=== PATIENT | female | born 1940 | race Caucasian/White ===

== ENCOUNTER 2019-01-16 17:32 | Emergency (ER) | payer MEDICARE, BC ==
[~2019-01-16] VITALS: Ht 170.2 cm; Wt 65.8 kg
[2019-01-16 17:32] VITALS: BP 133/61
[2019-01-16] MEDS ORDERED: CLARITHROMYCIN 500 MG TABLET PO ONE (18:30)
[2019-01-16] MEDS ORDERED: ACETAMINOPHEN 325 MG TABLET PO ONE (18:30)
[2019-01-16] MEDS ORDERED: ACETAMINOPHEN 325 MG TABLET ONE (19:23)
[2019-01-16] MEDS ORDERED: AZITHROMYCIN 250 MG TABLET ONE (19:23)
[2019-01-16] MEDS ORDERED: AZITHROMYCIN 250 MG TABLET PO ONE (19:30)
[2019-01-16 19:33] LABS: APPEARANCE,URINE Clear (CLEAR); BILIRUBIN,URINE Negative (NEGATIVE); BLOOD, URINE Negative Ery/uL (NEGATIVE); COLOR,URINE Yellow (YELLOW); KETONES,URINE Negative (NEGATIVE); LEUKOCYTE ESTERASE ,URINE Trace (NEGATIVE); NITRITE, URINE Negative (NEGATIVE); PH,URINE 7.5 (5.0-8.0); PROTEIN,URINE Negative (NEGATIVE); UGLUCOSE Negative (NEGATIVE); UROBILINOGEN,URINE 0.2 EU/dL (0.2)
[2019-01-16 20:01] LABS: BACTERIA,URINE 2+ /HPF (None Seen); RBC,URINE NONE SEEN /HPF (0-2); SQUAMOUS EPITHELIAL CELL,UR Few /HPF (None Seen)
== END 2019-01-16 19:34 | disposition home or self-care (01) ==
LOC: ER 17:37
DX: J32.9 Chronic sinusitis, unspecified (principal); J45.909 Unspecified asthma, uncomplicated; I10 Essential (primary) hypertension; R09.81 Nasal congestion; Z88.0 Allergy status to penicillin
CPT/HCPCS: 71045-TC; 81000-TC; 87086-TC; 87186-TC

== ENCOUNTER 2019-10-17 01:19 | Inpatient (IN) | payer MEDICARE, BC ==
[2019-10-17] VITALS: BP 109/68
[~2019-10-17] VITALS: Ht 170.2 cm; Wt 64.1 kg
[2019-10-17] MEDS ORDERED: IV NS 0.9% 1,000 ML BAG IV ONE (01:30)
[2019-10-17 01:51] LABS: BASOPHILS % (AUTO) 0.7 % (0.0-2.0); EOSINOPHILS % (AUTO) 3.6 % (0.0-6.0); HEMATOCRIT 34 % (33-45); HEMOGLOBIN 11.6 g/dL (11.5-14.8); LYMPHOCYTES # (AUTO) 1.2 /CMM (0.8-4.8); LYMPHOCYTES % (AUTO) 20.2 % (20.0-44.0); MEAN CORPUSCULAR HGB CONC 34 g/dl (31.0-36.0); MEAN CORPUSCULAR VOLUME 86 fL (82-100); MONOCYTES # (AUTO) 0.5 /CMM (0.1-1.30); MONOCYTES % (AUTO) 8.3 % (2.0-12.0); NEUTROPHILS # (AUTO) 3.9 /CMM (1.8-8.9); NEUTROPHILS % (AUTO) 67.2 % (43.0-81.0); PLATELET COUNT (AUTO) 148 /CMM (150-450); RED BLOOD CELL COUNT(AUTO) 3.94 MIL/uL (4.0-5.2); WHITE BLOOD COUNT (AUTO) 5.9 K/uL (4.3-11.0)
[2019-10-17 02:02] LABS: ALANINE AMINOTRANSFERASE 18 U/L (12-78); ALBUMIN 3.1 g/dL (3.4-5.0); ALKALINE PHOSPHATASE 62 U/L (46-116); ASPARTATE AMINOTRANSFERASE 18 U/L (15-37); BILIRUBIN,DIRECT 0.1 mg/dL (0.0-0.2); BILIRUBIN,TOTAL 0.3 mg/dL (0.2-1.0); CALCIUM, SERUM 8.7 mg/dL (8.5-10.1); CARBON DIOXIDE 25 mmol/L (21-32); CHLORIDE 105 mmol/L (98-107); CREATININE 1.3 mg/dL (0.6-1.3); GLUCOSE 144 mg/dL (74-106); SODIUM SERUM 140 mmol/L (136-145); TOTAL PROTEIN, SERUM 6.3 g/dL (6.4-8.2); UREA NITROGEN, BLOOD 21 mg/dL (7-18)
[2019-10-17 02:10] LABS: POTASSIUM 2.8 mmol/L (3.5-5.1)
--- NOTE | 2019-10-17 02:10 | NUR ---
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 TO ER BED 2 ORDERS RECEIVED AND CARRIED OUT.
[2019-10-17] MEDS ORDERED: POTASSIUM CL. PREMIX PERIPHER. 50 ML ONE (03:30)
[2019-10-17] MEDS: POTASSIUM CL. PREMIX PERIPHER. 50 ML IV SCH ×2 (03:49→05:41)
--- NOTE | 2019-10-17 03:58 | NUR ---
Gretta barrios in [facility] - 10/17/19 at 0358 by [phone]
[2019-10-17] MEDS ORDERED: IV NS 0.9% 1,000 ML IV PRN ×2 (04:06→09:10)
[2019-10-17] MEDS ORDERED: HYDROCODONE/APAP 5/325MG 1 EACH TABLET PO PRN (04:30)
[2019-10-17] MEDS ORDERED: ACETAMINOPHEN 325 MG TABLET PO PRN (04:30)
[2019-10-17] MEDS ORDERED: POTASSIUM CHLORIDE 20 MEQ TAB.PRT.SR PO ONE (04:30)
[2019-10-17] MEDS ORDERED: ZOLPIDEM TARTRATE 5 MG TABLET PO PRN (04:30)
[2019-10-17] MEDS ORDERED: ONDANSETRON HCL/PF 4 MG/2 ML VIAL IVP PRN (04:30)
[2019-10-17] MEDS ORDERED: MAGNESIUM HYDROXIDE 30 ML UDC PO PRN (04:30)
[2019-10-17] MEDS ORDERED: MAG HYDROX/AL HYDROX/SIMETH 30 ML UDC PO PRN (04:30)
[2019-10-17] MEDS ORDERED: Z GUARD REMEDY 2 OZ OINT TP PRN (04:30)
[2019-10-17] MEDS ORDERED: ENOXAPARIN SODIUM 40 MG/0.4 ML DISP.SYRIN SQ ONE (05:00)
--- NOTE | 2019-10-17 05:00 | NUR ---
RN OPEN NOTES RECEIVED PATIENT FROM ER VIA ANIVAL WITH FAMILY AT BEDSIDE. A/OX4. NO SIGNS OF DISTRESS OR DISCOMFORT. BREATHING EVEN AND UNLABORED. IV ACCESS IN RFA, PATENT AND INTACT, NO SIGNS OF REDNESS OR INFILTRATION. ORIENTED PATIENT TO UNIT AND ROOM. ATTACHED TO TELE MONITOR WITH SR 92 NOTED. NO SKIN ISSUES NOTED. BED IN LOW LOCKED POSITION WITH SIDE RAILS X2. CALL LIGHT WITHIN REACH. WILL CONTINUE TO MONITOR.
--- NOTE | 2019-10-17 05:04 | NUR ---
TRANSPORTED PT TO FLOOR VIA ACLS PROTOCOL
[2019-10-17 06:00] VITALS: BP 129/74
[2019-10-17] MEDS ORDERED: AMIT50TA3 PO (06:34)
[2019-10-17] MEDS ORDERED: SIMV10TA98 PO (06:34)
[2019-10-17] MEDS ORDERED: PHEN-894 PO (06:34)
[2019-10-17] MEDS ORDERED: LISI10TA5 PO (06:34)
[2019-10-17] MEDS ORDERED: PRED20TA PO (06:34)
[2019-10-17] MEDS ORDERED: LEVO50TA8 PO (06:34)
[2019-10-17] MEDS ORDERED: MONT10TA22 PO (06:34)
[2019-10-17] MEDS ORDERED: TIOT18CA3 INH (06:34)
[2019-10-17] MEDS ORDERED: FLUT1DIS3 INH (06:34)
[2019-10-17] MEDS ORDERED: LORA-259 PO (06:34)
[2019-10-17] MEDS ORDERED: HYDR-3976 PO (06:34)
--- NOTE | 2019-10-17 06:57 | NUR ---
RN CLOSING NOTES PATIENT AWAKE IN BED. A/OX4. NO SIGNS OF DISTRESS OR DISCOMFORT. BREATHING EVEN AND UNLABORED. IV ACCESS IN RFA NS AND KCL CURRENTLY INFUSING, PATENT AND INTACT, NO SIGNS OF REDNESS OR INFILTRATION. ON TELE MONITORING WITH SR 93 NOTED. ALL NEEDS MET. NO SIGNIFICANT CHANGES. BED IN LOW LOCKED POSITION WITH SIDE RAILS X2. CALL LIGHT WITHIN REACH. WILL ENDORSE TO AM SHIFT FOR SUSI.
[2019-10-17] MEDS ORDERED: LORAZEPAM 1 MG TABLET PO ONE (07:00)
--- NOTE | 2019-10-17 07:10 | NUR ---
STRATEGIC MARKETING MANAGER OPENING NOTE: RECEIVED PATIENT AWAKE IN BED. A/OX4. COMPLAINTS OF ABDOMINAL PAIN REPORTED, NORCO 5/325MG WILL BE GIVEN FOR RELIEF PER PATIENT REQUEST. BREATHING EVEN AND UNLABORED. IV ACCESS ON RFA DISCONTINUED DUE TO SITE LEAKING. L HAND G18 USED WITH PATIENT COMPLAINT OF DISCOMFORT ON SITE, NO INFLITRATION NOTED, WILLING TO CONTINUE INFUSION ON CURRENT SITE. PATENT AND INTACT, NO SIGNS OF REDNESS OR INFILTRATION. ON TELE MONITORING WITH SR NOTED. ALL NEEDS CURRENTLY MET. NO SIGNIFICANT CHANGES. BED IN LOW LOCKED POSITION WITH SIDE RAILS X2. CALL LIGHT WITHIN REACH. WILL CONTINUE TO MONITOR.
[2019-10-17 08:00] VITALS: BP 151/79
[2019-10-17] MEDS ORDERED: ENOXAPARIN SODIUM 40 MG/0.4 ML DISP.SYRIN SQ SCH (09:00)
[2019-10-17 10:07] LABS: THYROID STIMULATING HORMONE 2.827 uIU/mL (0.358-3.74)
[2019-10-17 10:17] LABS: MAGNESIUM 1.5 mg/dL (1.8-2.4)
[2019-10-17] MEDS: POTASSIUM CHLORIDE 20 MEQ TAB.PRT.SR PO SCH ×5 (10:37→17:28)
[2019-10-17] MEDS ORDERED: Magnesium 1GM/D5W 100ML PREMIX 100 ML IV SCH (11:00)
[2019-10-17 12:00] VITALS: BP 136/68
[2019-10-17] MEDS ORDERED: MONTELUKAST SODIUM (10MG) 10 MG TABLET PO SCH (12:00)
[2019-10-17] MEDS ORDERED: predniSONE 20 MG TABLET PO SCH (12:00)
[2019-10-17] MEDS ORDERED: AMITRIPTYLINE HCL 10 MG TABLET PO SCH (12:00)
[2019-10-17] MEDS ORDERED: IPRATROPIUM NEB FS 0.5 MG/2.5 ML AMPUL.NEB NEB PRN (12:00)
[2019-10-17] MEDS ORDERED: SIMVASTATIN 10 MG TABLET PO SCH (12:00)
[2019-10-17] MEDS ORDERED: LORAZEPAM 1 MG TABLET PO SCH (12:00)
[2019-10-17] MEDS ORDERED: LEVOTHYROXINE SODIUM 50 MCG TABLET PO SCH (12:00)
[2019-10-17] MEDS ORDERED: AMITRIPTYLINE HCL 50 MG TABLET PO SCH (12:00)
[2019-10-17] MEDS ORDERED: LISINOPRIL (10MG) 10 MG TABLET PO SCH (12:00)
[2019-10-17] MEDS ORDERED: HYDROCODONE/APAP 5/325MG 1 EACH TABLET PO SCH (13:00)
[2019-10-17 16:00] VITALS: BP 136/70
[2019-10-17] MEDS ORDERED: MAGNESIUM OXIDE 400 MG TABLET PO ONE (17:00)
--- NOTE | 2019-10-17 18:15 | NUR ---
LOG INSPECTORPLANT OPERATIONS VICE PRESIDENT NOTE: PATIENT PICKED UP BY AND LEFT VIA PRIVATE CAR. SEEN BY DR. AVITIA EARLIER FOR DISCHARGE PLAN DISCUSSION. BELONGING FORMS WERE SIGNED, DISCHARGE NOTE SIGNED BY PATIENT AND POTASSIUM AND MAGNESIUM WERE REPLACED ORDERED. IV SITE TAKEN OUT UPON DISCHARGE, NO ASE NOTED. PATIENT'S HOME MEDICATIONS RETURNED IN SEALED BAG FROM PHARMACY. LEFT HOSPITAL IN STABLE CONDITION.
[2019-10-18] MEDS ORDERED: FLUTICASONE/VILANTEROL 1 EACH BLST.W.DEV IH SCH (09:00)
== END 2019-10-17 17:30 | disposition home or self-care (01) | DRG 316 ==
LOC: ER 01:22 → TELE 03:59
DX: I95.9 Hypotension, unspecified (principal); I10 Essential (primary) hypertension; J45.909 Unspecified asthma, uncomplicated; E87.6 Hypokalemia; R19.7 Diarrhea, unspecified; E83.42 Hypomagnesemia; K59.00 Constipation, unspecified; D69.6 Thrombocytopenia, unspecified
CPT/HCPCS: 36415; 70450-TC; 71045-TC; 80048-TC; 80061-TC; 80076-TC; 82728-TC; 83540-TC; 83735-TC; 84439-TC; 84443-TC; 84484-TC; 85025-TC; 86850-TC; 87081-TC; 93307-TC; 97116-TC; 97530-TC; G0378; J3475; J3480; J7030; J7040

== ENCOUNTER 2020-03-11 19:27 | Emergency (ER) | payer MEDICARE, BC ==
[~2020-03-11] VITALS: Ht 170.2 cm; Wt 57.2 kg
[~2020-03-11 19:27] MED LIST: AMIT50TA3 PO; FLUT1DIS3 INH; HYDR-3976 PO; LEVO50TA8 PO; LISI10TA5 PO; LORA-259 PO; MONT10TA22 PO; PHEN-894 PO; PRED20TA PO; SIMV10TA98 PO; TIOT18CA3 INH
--- NOTE | 2020-03-11 19:35 | NUR ---
PT BIBRA C/O WEAKNESS WHILE SHOPPING AT [employer]. -LOC. PT AMBULATORY W/ STEADY GAIT, RESPIRATIONS EVEN AND UNLABORED ON RA W/ AND NOTED. -NAUSEA. PT CONNECTED TO THE ENVIRONMENTAL RESEARCH SCIENTIST AND POX
--- NOTE | 2020-03-11 19:40 | NUR ---
EKG AT BEDSIDE
[2020-03-11] MEDS ORDERED: ONDANSETRON HCL/PF 4 MG/2 ML VIAL ONE (19:52)
[2020-03-11] MEDS ORDERED: IV NS 0.9% 1,000 ML BAG IV ONE (20:00)
[2020-03-11] MEDS ORDERED: ONDANSETRON HCL/PF 4 MG/2 ML VIAL IVP ONE (20:00)
[2020-03-11 20:12] LABS: LYMPHOCYTES # (AUTO) 1.3 /CMM (0.8-4.8); MEAN CORPUSCULAR VOLUME 84 fL (82-100); MONOCYTES # (AUTO) 0.6 /CMM (0.1-1.30); NEUTROPHILS # (AUTO) 4.2 /CMM (1.8-8.9); WHITE BLOOD COUNT (AUTO) 6.4 K/uL (4.3-11.0)
[2020-03-11 20:17] LABS: BASOPHILS # (AUTO) 0.1 /CMM (0.0-0.2); BASOPHILS % (AUTO) 1.2 % (0.0-2.0); EOSINOPHILS % (AUTO) 3.9 % (0.0-6.0); HEMATOCRIT 37 % (33-45); HEMOGLOBIN 13.7 g/dL (11.5-14.8); MEAN CORPUSCULAR HGB CONC 37 g/dl (31.0-36.0); MONOCYTES % (AUTO) 9.5 % (2.0-12.0); NEUTROPHILS % (AUTO) 65.4 % (43.0-81.0); PLATELET COUNT (AUTO) 144 /CMM (150-450)
--- NOTE | 2020-03-11 20:18 | NUR ---
PT BROUGHT BY RADIOLOGY TO CT
[2020-03-11 20:20] LABS: CALCIUM, SERUM 11.7 mg/dL (8.5-10.1); CARBON DIOXIDE 30 mmol/L (21-32); CHLORIDE 99 mmol/L (98-107); CREATININE 1.5 mg/dL (0.6-1.3); GLUCOSE 114 mg/dL (74-106); POTASSIUM 3.3 mmol/L (3.5-5.1); SODIUM SERUM 134 mmol/L (136-145); UREA NITROGEN, BLOOD 24 mg/dL (7-18)
--- NOTE | 2020-03-11 20:20 | NUR ---
PT REFUSED ZOFRAN 4 MG FOR NOW. MADE AWARE
[2020-03-11 20:26] LABS: ALANINE AMINOTRANSFERASE 18 U/L (12-78); ALBUMIN 3.6 g/dL (3.4-5.0); ALKALINE PHOSPHATASE 105 U/L (46-116); ASPARTATE AMINOTRANSFERASE 23 U/L (15-37); BILIRUBIN,DIRECT 0.1 mg/dL (0.0-0.2); BILIRUBIN,TOTAL 0.5 mg/dL (0.2-1.0); TOTAL PROTEIN, SERUM 9.1 g/dL (6.4-8.2)
--- NOTE | 2020-03-11 21:38 | NUR ---
Patient discharged to home in stable condition. Written and verbal after care instructions given. Patient verbalizes understanding of instruction.IV removed. Catheter intact and site benign. Pressure and 4x4 applied to site. No bleeding noted.
[2020-03-11 21:39] VITALS: BP 122/84
== END 2020-03-11 21:39 | disposition home or self-care (01) ==
LOC: ER 19:28
DX: E86.0 Dehydration (principal); R55 Syncope and collapse; I10 Essential (primary) hypertension; I45.10 Unspecified right bundle-branch block; J45.909 Unspecified asthma, uncomplicated; Z90.710 Acquired absence of both cervix and uterus; Z88.0 Allergy status to penicillin; Z88.6 Allergy status to analgesic agent; Z79.899 Other long term (current) drug therapy
CPT/HCPCS: 36415; 70450; 71045; 80048; 80076; 82962; 84484; 85025; 85730; 93005; 96360; 99285; J7030; J2405

== ENCOUNTER 2023-08-31 15:31 | Emergency (ER) | payer MEDICARE, BC ==
[~2023-08-31] VITALS: Ht 170.2 cm; Wt 59.9 kg
[~2023-08-31 15:31] MED LIST changes: +LISI10TA29 PO; -LISI10TA5 PO
[2023-08-31] MEDS ORDERED: OXYMETAZOLINE HCL NASAL SPRAY 30 ML BOTTLE NS ONE ×2 (16:38→17:00)
[2023-08-31 16:54] VITALS: BP 120/64; TEMP 98.5; O2SAT 100
== END 2023-08-31 16:53 | disposition home or self-care (01) ==
LOC: ER 16:04
DX: R04.0 Epistaxis (principal); I10 Essential (primary) hypertension; J45.909 Unspecified asthma, uncomplicated; Z90.710 Acquired absence of both cervix and uterus; Z88.0 Allergy status to penicillin; Z88.2 Allergy status to sulfonamides; Z88.8 Allergy status to other drugs, medicaments and biological substances; Z79.899 Other long term (current) drug therapy

== ENCOUNTER 2024-12-20 10:10 | Inpatient (IN) | payer MEDICARE, BC ==
[~2024-12-20] VITALS: Ht 170.2 cm; Wt 61.2 kg
[2024-12-20] VITALS (17 sets, daily range): BP systolic 37–101; BP diastolic 22–50; TEMP 98.8; O2SAT 75–97
[2024-12-20] MEDS: IV NS 0.9% 1,000 ML BAG IV ONE ×2 (10:31→14:28)
[2024-12-20 10:47] LABS: BASOPHILS % (AUTO) 0.4 % (0.0-2.0); EOSINOPHILS % (AUTO) 1.2 % (0.0-6.0); HEMATOCRIT 31 % (33-45); HEMOGLOBIN 9.9 g/dL (11.5-14.8); LYMPHOCYTES # (AUTO) 0.3 K/uL (0.8-4.8); LYMPHOCYTES % (AUTO) 12.6 % (20.0-44.0); MEAN CORPUSCULAR HEMOGLOBIN 32 PG (26.0-33.0); MEAN CORPUSCULAR HGB CONC 32 g/dl (31.0-36.0); MEAN CORPUSCULAR VOLUME 99 fL (82-100); MONOCYTES % (AUTO) 0.6 % (2.0-12.0); NEUTROPHILS # (AUTO) 1.7 K/uL (1.8-8.9); NEUTROPHILS % (AUTO) 85.2 % (43.0-81.0); PLATELET COUNT (AUTO) 157 K/uL (150-450); RED CELL DISTRIBUTION WIDTH 14.6 % (11.5-15.0)
[2024-12-20 10:50] LABS: CALCIUM, SERUM 8.2 mg/dL (8.5-10.1); CARBON DIOXIDE 21 mmol/L (21-32); CHLORIDE 106 mmol/L (98-107); CREATININE 1.8 mg/dL (0.6-1.3); GLUCOSE 96 mg/dL (74-106); POTASSIUM 3.6 mmol/L (3.5-5.1); SODIUM SERUM 141 mmol/L (136-145); UREA NITROGEN, BLOOD 29 mg/dL (7-18)
[2024-12-20] MEDS: CEFEPIME 1 GM in IV D5W 50 ML IV ONE (10:50)
[2024-12-20 10:55] LABS: INR 1.29 (0.91-1.10); PARTIAL THROMBOPLASTIN TIME 38.4 SEC (24.3-34.3); PROTHROMBIN TIME 13.4 SECS (9.2-11.1)
[2024-12-20 11:01] LABS: LACTIC ACID 9.4 mmol/L (0.4-2.0)
[2024-12-20 11:05] LABS: ALANINE AMINOTRANSFERASE 38 U/L (12-78); ALKALINE PHOSPHATASE 70 U/L (46-116); ASPARTATE AMINOTRANSFERASE 57 U/L (15-37); BILIRUBIN,DIRECT 0.4 mg/dL (0.0-0.2); BILIRUBIN,TOTAL 0.7 mg/dL (0.2-1.0)
[2024-12-20] MEDS ORDERED: NOREPINEPHRINE 8MG/250ML RTU 250 ML IV ONE ×2 (11:08→14:01)
[2024-12-20] MEDS: NOREPINEPHRINE 8 MG in IV NS 0.9% 250 ML IV ONE (11:10)
[2024-12-20] MEDS: ETOMIDATE 2 MG/ML VIAL IV ONE (11:16)
[2024-12-20] MEDS: ROCURONIUM BROMIDE 100 MG/10 ML VIAL IV ONE (11:16)
[2024-12-20] MEDS ORDERED: MIDAZOLAM HCL 100 MG in IV NS 0.9% 80 ML IV PRN (11:30)
[2024-12-20] MEDS ORDERED: FENTANYL CITRAT IV 2,500 MCG in IV NS 0.9% 200 ML IV PRN (11:30)
[2024-12-20] MEDS ORDERED: FENTANYL PF 100MCG/2ML AMPUL ONE (11:31)
[2024-12-20] MEDS ORDERED: MIDAZOLAM HCL 2 MG/2ML VIAL ONE (11:31)
[2024-12-20] MEDS: FENTANYL PF 100MCG/2ML AMPUL IV ONE (11:35)
[2024-12-20] MEDS: MIDAZOLAM HCL 2 MG/2ML VIAL IV ONE (11:35)
[2024-12-20] MEDS: VANCOMYCIN 1 GM in IV D5W 250 ML IV ONE (11:45)
[2024-12-20 12:00] LABS: ABG BASE EXCESS -14.7 mmol/L (-2.0-3.0); ABG OXYGEN SATURATION 96.7 % (94.0-98.0); ABG PCO2 39.3 mmHg (32.0-45.0); ABG PH 7.146 (7.350-7.450); ABG PO2 267.3 mmHg (83.0-108.0); ABG TOTAL HEMOGLOBIN 9.6 G/dL (12.0-16.0); COHb 2.7 % (0.5-1.5); O2Hb 94.1 % (94.0-97.0); PEEP,BG 5 cm H2O; SITE, ABG RIGHT RADIAL; VT, ABG 150 mL
[2024-12-20] MEDS ORDERED: KEY,NONCONTROL,TO KEEP IN PYXI 1 EA MC ONE (12:12)
[2024-12-20] MEDS ORDERED: ACETAMINOPHEN 650 MG/SUPP.RECT RC ONE (12:17)
[2024-12-20] MEDS: ACETAMINOPHEN 650 MG/SUPP.RECT RC ONE (12:20)
[2024-12-20] MEDS ORDERED: FLUT1BLS12 IH (12:43)
[2024-12-20] MEDS ORDERED: ROSU20TA32 PO (12:43)
[2024-12-20] MEDS ORDERED: AMIT25TA9 PO (12:44)
[2024-12-20] MEDS ORDERED: ZANU80CA PO (12:44)
[2024-12-20] MEDS ORDERED: ZOLPIDEM TARTRATE 5 MG TABLET PO PRN (13:00)
[2024-12-20] MEDS ORDERED: ONDANSETRON HCL/PF 4 MG/2 ML VIAL IVP PRN (13:00)
[2024-12-20] MEDS ORDERED: MAGNESIUM HYDROXIDE 30 ML UDC PO PRN (13:00)
[2024-12-20] MEDS ORDERED: ACETAMINOPHEN 325 MG TABLET PO PRN (13:00)
[2024-12-20] MEDS ORDERED: MAG HYDROX/AL HYDROX/SIMETH 30 ML UDC PO PRN (13:00)
[2024-12-20] MEDS ORDERED: Z GUARD REMEDY 4 OZ OINT TP PRN (13:00)
[2024-12-20 13:21] LABS: APPEARANCE,URINE SLIGHTLY CLOUDY (CLEAR); BILIRUBIN,URINE NEGATIVE (NEGATIVE); BLOOD, URINE NEGATIVE Ery/uL (NEGATIVE); COLOR,URINE YELLOW (YELLOW); KETONES,URINE NEGATIVE (NEGATIVE); LEUKOCYTE ESTERASE ,URINE NEGATIVE (NEGATIVE); NITRITE, URINE NEGATIVE (NEGATIVE); PROTEIN,URINE NEGATIVE (NEGATIVE); UGLUCOSE NEGATIVE (NEGATIVE); UROBILINOGEN,URINE 0.2 EU/dL (0.2)
[2024-12-20 13:35] LABS: ADD URINE CULTURE YES; BACTERIA,URINE 1+ /HPF (None Seen); RBC,URINE 0-2 /HPF (0-2)
[2024-12-20] MEDS ORDERED: CLINDAMYCIN IV RTU IN D5W 900 MG/50 ML PIGGYBACK IV SCH (15:00)
[2024-12-20] MEDS: ENOXAPARIN SODIUM 30 MG/0.3 ML DISP.SYRIN SQ SCH (15:00)
[2024-12-20] MEDS: IV NS 0.9% 1,000 ML IV PRN (15:12)
[2024-12-20] MEDS ORDERED: AZTREONAM 1 G VIAL IM SCH (15:30)
[2024-12-20] MEDS ORDERED: AZTREONAM 1 G in IV NS 0.9% 100 ML IV SCH (16:00)
[2024-12-20] MEDS: NOREPINEPHRINE 32 MG in IV NS 0.9% 218 ML IV PRN (16:10)
[2024-12-20 16:13] LABS: ABG BASE EXCESS -19.4 mmol/L (-2.0-3.0); ABG PH 7.006 (7.350-7.450); ABG PO2 65.4 mmHg (83.0-108.0); COHb 5.4 % (0.5-1.5); O2Hb 75.7 % (94.0-97.0); SITE, ABG RIGHT BRACHIAL; VT, ABG 450 mL
[2024-12-20] MEDS ORDERED: HEPARIN INFUSION/D5W 500 ML IV PRN ×2 (16:30→17:00)
[2024-12-20] MEDS: SODIUM BICARBONATE SYR 50 MEQ/50 ML DISP.SYRIN IV ONE (16:33)
[2024-12-20] MEDS: CLINDAMYCIN 900 MG in IV D5W 50 ML IV SCH (16:33)
[2024-12-20] MEDS: LEVOFLOXACIN 750 MG /D5W 150ML 750 MG in PREMIX 1 EA IV SCH (16:36)
[2024-12-20] MEDS: PHENYLEPHRINE 100 MG in IV NS 0.9% 240 ML IV PRN (16:38)
[2024-12-20] MEDS ORDERED: Sodium Bicarbonate 150 MEQ in IV D5W 1,000 ML IV SCH (17:00)
[2024-12-20] MEDS: VASOPRESSIN INJ 40 UNIT in IV NS 0.9% 38 ML IV PRN (17:14)
[2024-12-20] MEDS ORDERED: DEXTROSE 50%-WATER 50 ML DISP.SYRIN IV ONE (17:30)
[2024-12-20] MEDS ORDERED: CALCIUM CHLORIDE 1,000 MG/10 ML DISP.SYRIN IV ONE (17:30)
[2024-12-21] MEDS ORDERED: PANTOPRAZOLE 40 MG VIAL IV SCH (09:00)
== END 2024-12-20 17:31 | DRG 871 ==
LOC: ER 10:12 → ICU 14:02
PROVIDERS: ADMIT Student in an Organized Health Care Education/Training Program; ATTEND Student in an Organized Health Care Education/Training Program
PROC: 5A12012 Performance of Cardiac Output, Single, Manual (ICD-10-PCS; principal; 2024-12-20)
PROC: 5A1935Z Respiratory Ventilation, Less than 24 Consecutive Hours (ICD-10-PCS; 2024-12-20)
PROC: 02HV33Z Insertion of Infusion Device into Superior Vena Cava, Percutaneous Approach (ICD-10-PCS; 2024-12-20)
PROC: B548ZZA Ultrasonography of Superior Vena Cava, Guidance (ICD-10-PCS; 2024-12-20)
PROC: 0BH18EZ Insertion of Endotracheal Airway into Trachea, Via Natural or Artificial Opening Endoscopic (ICD-10-PCS; 2024-12-20)
DX: A41.9 Sepsis, unspecified organism (principal); G92.8 Other toxic encephalopathy; J96.01 Acute respiratory failure with hypoxia; R65.21 Severe sepsis with septic shock; N17.0 Acute kidney failure with tubular necrosis; I21.A1 Myocardial infarction type 2; J18.9 Pneumonia, unspecified organism; Z20.822 Contact with and (suspected) exposure to COVID-19; D64.9 Anemia, unspecified; D70.9 Neutropenia, unspecified; I10 Essential (primary) hypertension; I34.0 Nonrheumatic mitral (valve) insufficiency; I34.1 Nonrheumatic mitral (valve) prolapse; Z95.2 Presence of prosthetic heart valve; Z88.0 Allergy status to penicillin; Z88.2 Allergy status to sulfonamides; K52.9 Noninfective gastroenteritis and colitis, unspecified; Z85.79 Personal history of other malignant neoplasms of lymphoid, hematopoietic and related tissues; R91.8 Other nonspecific abnormal finding of lung field; J45.909 Unspecified asthma, uncomplicated; Z85.820 Personal history of malignant melanoma of skin; Z90.710 Acquired absence of both cervix and uterus
CPT/HCPCS: 36415; 36600; 71045-TC; 80048-TC; 80076-TC; 81001; 82803-TC; 82962-TC; 83605-TC; 84484-TC; 85025-TC; 85730-TC; 87040-TC; 87081-TC; 87086-TC; 87186-TC; 94002-TC; 99082-TC; A4216; A4223; G0378; J0171; J0692; J1956; J2250; J3010; J3370; J3490; J7030; J7050; J7060; J7070